=== PATIENT | male | born 1960 ===

== ENCOUNTER 2021-07-12 05:25 | Day surgery (SDC) | payer MEDICAID ==
[2021-07-05 14:20] LABS: CLARITY,URINE CLEAR (Clear); COLOR,URINE STRAW (Yellow); GLUCOSE, URINE NEGATIVE (Neg); KETONES,URINE NEGATIVE (Neg); LEUKOCYTE ESTERASE ,URINE NEGATIVE (Neg); NITRITES, URINE NEGATIVE (Neg); OCCULT BLOOD,URINE NEGATIVE (Neg); PROTEIN,URINE NEGATIVE (Neg); UROBILINOGEN,URINE 0.2 E.U/dL (0.2-1.0)
[2021-07-05 14:24] LABS: UA COLLECTION TYPE CLN CATCH MIDSTREAM
[2021-07-05 14:31] LABS: BASOPHILS # (AUTO) 0.1 X10'3 (0-0.2); BASOPHILS % (AUTO) 0.8 % (0-1); EOSINOPHILS # (AUTO) 0.1 X10'3 (0-0.9); EOSINOPHILS % (AUTO) 2.1 % (0-6); LYMPHOCYTES # (AUTO) 1.9 X10'3 (1.1-4.8); LYMPHOCYTES % (AUTO) 30.1 % (21-51); MEAN CORPUSCULAR HEMOGLOBIN 29.9 PG (27.0-31.0); MEAN CORPUSCULAR HGB CONC 33.7 g/dL (33.0-36.5); MEAN CORPUSCULAR VOLUME 88.6 FL (78-98); MEAN PLATELET VOLUME 9.3 FL (7.4-10.4); MONOCYTES # (AUTO) 0.6 X10'3 (0-0.9); MONOCYTES % (AUTO) 10.5 % (2-12); NEUTROPHILS # (AUTO) 3.5 X10'3 (1.8-7.7); NEUTROPHILS % (AUTO) 56.5 % (42-75); PRE OP HEMATOCRIT 41.3 % (42.0-52.0); PRE OP HEMOGLOBIN 13.9 g/dL (14.0-17.9); PRE OP PLATELET COUNT 158 X10'3 (140-440); RED BLOOD COUNT 4.65 X10'6 (4.70-6.10); RED CELL DISTRIBUTION WIDTH 13.6 % (11.5-14.5)
[2021-07-05 14:54] LABS: ALBUMIN 3.9 G/DL (3.4-5.0); ALKALINE PHOSPHATASE 74 IU/L (46-116); BLOOD UREA NITROGEN 26 MG/DL (7-18); BUN/CREATININE RATIO 20.6 (5.4-32.0); CALCIUM 8.9 MG/DL (8.5-10.1); CHLORIDE 107 MMOL/L (99-107); CREATININE 1.26 MG/DL (0.60-1.10); PRE OP ALT 18 U/L (30-65); PRE OP ANION GAP 9 (8-16); PRE OP AST 13 U/L (10-37); PRE OP BILIRUB, TOTAL 0.5 MG/DL (0.0-1.0); PRE OP GLUCOSE 155 MG/DL (70-104); PRE OP POTASSIUM 4.6 MMOL/L (3.4-5.1); PRE OP SODIUM 142 MMOL/L (135-145); TOTAL CARBON DIOXIDE 25.7 MMOL/L (24-32); TOTAL PROTEIN 7.9 G/DL (6.4-8.2); eGFR 59 ML/MIN
[2021-07-12] VITALS (10 sets, daily range): BP systolic 149–160; BP diastolic 62–88
[~2021-07-12] VITALS: Ht 165.1 cm; Wt 93.3 kg
[~2021-07-12 05:25] MED LIST: ALLO300T8 PO; BETA1TAB18 PO; CARV6.253 PO; DOXY-327 PO; FLO0.4C PO; GABA-530 PO; LANTUS SQ; LISI1TAB51 PO; METF-950 PO; MULT-1085 PO; RISP0.5T65 PO; SOD250TA2 PO; UBID100C16 PO; ringers solution, lacted 1,000 ML IV SCH
[2021-07-12] MEDS ORDERED: DOCUMENT DATE & TIME OF BETA-BLOCKER PO ONE (05:30)
[2021-07-12] MEDS ORDERED: famotidine 20mg tablet PO ONE (05:30)
[2021-07-12] MEDS ORDERED: cefazolin/dext.iso 2gm/100ml IV ONE (05:30)
[2021-07-12] MEDS ORDERED: BUPIVAcaine 0.5% inj/PF 30 ML ONE (06:43)
[2021-07-12] MEDS ORDERED: bacitracin 15gm ointment TP ONE (06:43)
[2021-07-12] MEDS ORDERED: midazolam 1 mg/ML 2ml injection IV ONE (06:55)
[2021-07-12] MEDS ORDERED: sevoflurane 250ml liquid IH ONE (07:00)
[2021-07-12] MEDS ORDERED: ondansetron/PF 4mg/2ml inj ONE (07:00)
[2021-07-12] MEDS ORDERED: fentaNYL/PF 50MCG/1 ML 2ML syringe ONE (07:01)
[2021-07-12] MEDS ORDERED: midazolam 1 mg/ML 2ml injection ONE (07:01)
[2021-07-12] MEDS ORDERED: etomidate 2mg/ml inj. ONE (07:02)
[2021-07-12] MEDS ORDERED: ROPIVAcaine 0.5% (5mg/ml) 30ml vial ONE ×2 (07:26)
[2021-07-12] MEDS ORDERED: hydrALAZINE 20mg/ml inj. IV PRN (07:50)
[2021-07-12] MEDS ORDERED: ondansetron/PF 4mg/2ml inj IV PRN (07:50)
[2021-07-12] MEDS ORDERED: enalaprilat dihydrate 2.5mg/2ml vial IV PRN (07:50)
[2021-07-12] MEDS ORDERED: morphine 2 MG/ML inj. syringe IV PRN (07:50)
[2021-07-12] MEDS ORDERED: ringers solution, lacted 1,000 ML IV SCH (07:50)
[2021-07-12] MEDS ORDERED: fentaNYL/PF 50MCG/1 ML 2ML syringe IV PRN ×2 (07:50)
[2021-07-12] MEDS ORDERED: morphine 4 MG/ML inj SYRINge IV PRN (07:50)
[2021-07-12] MEDS ORDERED: hydrALAZINE 20mg/ml inj. IV ONE (07:58)
--- NOTE | 2021-07-12 08:03 | NUR ---
Received from OR via , accompanied by Anesthesiologist dr davis and report given by Anesthesiolgist. PT PRESENTS WITH 20G LEFT HAND, DRSSING ON RIGHT FOOT DRY AND INTACT. VSS. Addendum: 07/12/21 at 0808 by Kayce Ackerman RN, RN Amended: Links added.
--- NOTE | 2021-07-12 09:13 | NUR ---
I HAVE REVIEWED D/C INSTRUCTIONS WITH PATIENT AND THEY HAVE VERBALIZED UNDERSTANDING OF INSTRUCTIONS. PATIENT D/C HOME WITH ALL BELONGINGS AND FAMILY GAVE TRANSPORT PT GIVEN BBOT AND CRUTCHES AND SENT HOME WITH 1 BAG. Addendum: 07/12/21 at 0928 by Kayce Ackerman RN, RN Amended: Links added.
== END 2021-07-12 09:13 | disposition home or self-care (01) ==
LOC: PAS 05:25
PROVIDERS: ATTEND Podiatrist Foot & Ankle Surgery
DX: M20.41 Other hammer toe(s) (acquired), right foot (principal); M25.774 Osteophyte, right foot; E11.42 Type 2 diabetes mellitus with diabetic polyneuropathy; I10 Essential (primary) hypertension; E66.01 Morbid (severe) obesity due to excess calories; Z68.36 Body mass index [BMI] 36.0-36.9, adult; E11.59 Type 2 diabetes mellitus with other circulatory complications; M17.0 Bilateral primary osteoarthritis of knee; M86.9 Osteomyelitis, unspecified; G89.18 Other acute postprocedural pain; Z79.899 Other long term (current) drug therapy; Z79.4 Long term (current) use of insulin; Z20.822 Contact with and (suspected) exposure to COVID-19; Z98.890 Other specified postprocedural states; Z89.411 Acquired absence of right great toe; Z87.891 Personal history of nicotine dependence; Z72.89 Other problems related to lifestyle; Z86.19 Personal history of other infectious and parasitic diseases
CPT/HCPCS: 28285; 28820; 36415; 64445; 64447; 76942; 80053; 81003; 82948; 85025; 93005; A6223; J0360; J2250; J2270; J2405; J3010; U0003; U0005; Z7506; Z7508; Z7512; A4618; A6449; A7000; J2795; J7120